=== PATIENT | male | born 1980 | race Caucasian/White ===

== ENCOUNTER 2021-09-01 06:06 | Day surgery (SDC) | payer OTHER ==
[~2021-09-01] VITALS: Ht 182.9 cm; Wt 102.7 kg
[2021-09-01] MEDS ORDERED: LIDOCAINE 2% 30 ML JELLY TP ONE (06:07)
[2021-09-01] MEDS ORDERED: BENZOCAINE 20% 50 MCG/SPRAY 57 GM TP ONE (06:07)
[2021-09-01] MEDS ORDERED: LIDOCAINE 4% 50 ML SOLUTION TP ONE (06:07)
[2021-09-01] MEDS ORDERED: ALBUTEROL SULFATE 2.5 MG/0.5 ML NEB SOLUTION NEB ONE (06:07)
[2021-09-01] MEDS ORDERED: SODIUM CHLORIDE 0.9% 1,000 ML IV ONE (06:30)
[2021-09-01] MEDS ORDERED: SODIUM CHLORIDE 0.9% 1,000 ML ONE (06:36)
[2021-09-01 06:49] LABS: COVID AG,FIA SOURCE NASAL SWAB
[2021-09-01] MEDS ORDERED: FAMO20 PO (06:59)
[2021-09-01] MEDS ORDERED: TIOT185 IH (06:59)
[2021-09-01] MEDS ORDERED: MONT-35 PO (06:59)
[2021-09-01] MEDS ORDERED: LORA10TA7 PO (06:59)
[2021-09-01] MEDS ORDERED: DULO-113 PO (06:59)
[2021-09-01] MEDS ORDERED: FentaNYL CITRATE PF 100 MCG/2 ML VIAL ONE (07:31)
[2021-09-01] MEDS ORDERED: MIDAZOLAM HCL 5 MG/ML VIAL ONE (07:31)
[2021-09-01] MEDS ORDERED: MethylPREDNISolone SOD SUCC 125 MG/2 ML VIAL IVP ONE (09:30)
[2021-09-01] MEDS ORDERED: OXYGEN THERAPY IH SCH (20:00)
== END 2021-09-01 11:15 | disposition home or self-care (01) ==
LOC: SURGERY 06:06
PROVIDERS: ATTEND Internal Medicine Critical Care Medicine
DX: J38.4 Edema of larynx (principal); B37.0 Candidal stomatitis; J45.909 Unspecified asthma, uncomplicated; Z79.899 Other long term (current) drug therapy; Z98.890 Other specified postprocedural states
CPT/HCPCS: 31623; 31624; 71045; 87015; 87070; 87101; 87206; 87220; 87426; 88112; 88184; 88185; 88305; 88312; C9803; J2250; J3010; J7030; J7613; Z7610